=== PATIENT | female | born 1995 | race Caucasian/White ===

== ENCOUNTER 2021-03-01 16:05 | Observation (INO) | payer OTHER, SELFPAY ==
--- NOTE | 2021-03-01 16:04 | OBADM ---
This patient, Lucy Odonnell, admitted to the OB room [facility] Post [facility] for observation. Patient/family oriented to hospital policies and general routines including ID bracelet, bed and alarms, visiting hours, pain management, procedures, bathroom and other care routines, personal items, smoking policy, room service/diet, and visiting hours. Patient/Family are encouraged to report perceived risks to care and to ask questions if they do not understand what they are told or what they should do.
[2021-03-01 17:02] VITALS: BP 117/75; PULSE 86
[2021-03-01 17:20] VITALS: BMI 45.3
[2021-03-01 18:56] LABS: Fetal Fibronectin Negative
--- NOTE | 2021-03-02 12:32 | PM.OBTRLD ---
OB - Triage/Final Diagnosis Visit Information Comments/Additional reasons for admission: I have assessed the risk for this patient, Lucy Odonnell, and determined that she would benefit from observation care. Evaluation Laboratory results: Laboratory Tests 03/01/21 18:22 Fibronectin Negative Vital signs: Vital Signs - 24 hr 03/01/21 17:02 Pulse Rate 86 Blood Pressure 117/75 Final Diagnosis (1) False labor: Code(s): O47.9 - False labor, unspecified Status: Acute
== END 2021-03-01 19:55 | disposition home or self-care (01) ==
LOC: ANHOBOP 16:14 → ANHOBPP 16:14 → ANHOBOP 16:24 → ANHOBPP 16:24
PROVIDERS: Admitting Provider Obstetrics & Gynecology; Visit Provider Obstetrics & Gynecology
DX: O47.03 False labor before 37 completed weeks of gestation, third trimester (principal); Z3A.32 32 weeks gestation of pregnancy
CPT/HCPCS: 82731; 84112; G0378; G0379

== ENCOUNTER 2021-03-20 15:40 | Observation (INO) | payer OTHER, SELFPAY ==
[2021-03-20 16:01] VITALS: BP 115/77; PULSE 111
[2021-03-20 17:28] LABS: Add Urine Microscopic? YES; Appearance Urine Cloudy (Clear); Bacteria Urine Trace /hpf; Bilirubin Urine Negative (Negative); Blood Urine 2+ (Negative); Color Urine Yellow (Yellow); Glucose Urine UA Negative (Negative); Ketones Urine 1+ mg/dL (Negative); Leukocyte Esterase Ur Negative LEU/UL (NEGATIVE); Mucus Urine Rare /lpf; Nitrate Urine Negative (Negative); Protein Urine Negative (Negative); Specific Grav Ur 1.019 (1.001-1.035); Squamous Epithelial Cell Urine Moderate /hpf (Few); Urobilinogen Urine Negative mg/dL (<2.0); WBC Urine 0-3 /hpf (0-3)
[2021-03-20] MEDS: LACTATED RINGERS 1,000 ML 999 ML IV CONT (17:58)
[2021-03-20 19:15] LABS: Glucose Point of Care 73 mg/dl (65-105)
[2021-03-20 19:17] VITALS: BMI 45.3
[2021-03-20 19:28] VITALS: BP 117/69; PULSE 87
--- NOTE | 2021-03-22 09:46 | P.PNOB_ITS ---
OB - Triage/Final Diagnosis Visit Information Comments/Additional reasons for admission: I have assessed the risk for this patient, Lucy Odonnell, and determined that she would benefit from observation care. Evaluation Laboratory results: Laboratory Tests 03/20/21 03/20/21 17:18 19:11 POC Capillary Glucose 73 Urine Color Yellow Urine Appearance Cloudy H Urine pH 6.0 Ur Specific [place] 1.019 Urine Protein Negative Urine Glucose (UA) Negative Urine Ketones 1+ H Ur Blood (Man) 2+ H Urine Nitrate Negative Urine Bilirubin Negative Urine Urobilinogen Negative Ur Leukocyte Esterase Negative Urine RBC 11-20 H Urine WBC 0-3 Ur Squamous Epith Cells Moderate H Urine Bacteria Trace Urine Mucus Rare Final Diagnosis (1) False labor: Code(s): O47.9 - False labor, unspecified Status: Acute
== END 2021-03-20 22:26 | disposition home or self-care (01) ==
PROVIDERS: Admitting Provider Obstetrics & Gynecology; Visit Provider Obstetrics & Gynecology
DX: O47.03 False labor before 37 completed weeks of gestation, third trimester (principal); Z3A.35 35 weeks gestation of pregnancy
CPT/HCPCS: 81001; 82948; 87077; 87086; 87088; G0378; G0379; J7120

== ENCOUNTER 2021-03-30 15:45 | Outpatient (RCR) | payer OTHER, SELFPAY ==
[2021-03-09 15:50] VITALS: BP 112/75; PULSE 94
[2021-03-13 17:06] VITALS: BP 110/64; PULSE 103
[2021-03-16 18:08] VITALS: BP 105/60; PULSE 84
--- NOTE | 2021-03-16 18:22 | PC.NURSE ---
BPP 03/26. Pt given symptoms to return to L&D for- verbalizes understanding.
[2021-03-27 16:16] VITALS: BP 107/68; PULSE 105
--- NOTE | ~2021-03-30 | US_ITS ---
EXAMINATION: US OB BPP wo non-stress DATE: 03/23/2021 17:08 INDICATION: Gestational diabetes. Third trimester. TECHNIQUE: Real-time pelvic ultrasound was performed. COMPARISON: Ultrasound 03/16/2021 FINDINGS: There is a single living fetus in vertex presentation. The placenta is fundal. heart rate is 1 52 beats per minute (bpm). Biophysical profile performed by the technologist: breathing (30 sec sustained breathing in 30 minutes): 2 out of 2 movement (3 gross body movements in 30 minutes): 2 out of 2 tone (one episode of mjiyxoz-rzvsnzkqr-cyeqweq limb movement): 2 out of 2 Amniotic fluid pocket (2 cm): 2 out of 2 Total score: 8 out of 8 IMPRESSION: 1. Single living fetus in vertex presentation. 2. Biophysical profile 8 out of 8. Reviewed, dictated and finalized at location A.
--- NOTE | ~2021-03-30 | US_ITS ---
EXAMINATION: US OB follow up w BPP DATE: 03/30/2021 17:10 INDICATION: Large for gestational age. Third trimester. TECHNIQUE: Real-time pelvic ultrasound was performed. COMPARISON: Ultrasound 03/23/2021, 03/09/2021 FINDINGS: There is a single living fetus in vertex presentation. The placenta is anterior. heart rate is 134 beats per minute (bpm). The amniotic fluid index is 8.2 cm, which is normal. The following biometric data were obtained: Biparietal diameter (BPD): 9.3 cm; head circumference (HC): 34.9 cm; abdominal circumference (AC): 35 .1 cm; femur length (FL): 7.2 cm. These measurements are concordant. Estimated weight is 3536 g +/- 530 g, which correlates with 93rd percentile when 04/22/21 is used as estimated date of delivery. As single measurements, these parameters are each equal to the following estimated gestational ages: BPD: 37 weeks 6 days. HC: 40 weeks 4 days. AC: 39 weeks 0 days. FL: 36 weeks 6 days. estimated gestational age based solely on measurements from this exam is 38 weeks 4 days +/- 2 weeks 5 days. Biophysical profile performed by the technologist: breathing (30 sec sustained breathing in 30 minutes): 2 out of 2 movement (3 gross body movements in 30 minutes): 2 out of 2 tone (one episode of vwjvoup-tvpwtxnij-prlexca limb movement): 2 out of 2 Amniotic fluid pocket (2 cm): 2 out of 2 Total score: 8 out of 8 IMPRESSION: 1. Single living fetus in vertex presentation. 2. Large for gestational age. Estimated weight is 3536 g +/- 530 g, which correlates with 93rd percentile when 04/22/21 is used as estimated date of delivery. 3. Biophysical profile 8 out of 8. Reviewed, dictated and finalized at location A. IMPRESSION: 1. Single living fetus in vertex presentation. 2. Large for gestational age. Estimated weight is 3536 g +/- 530 g, which correlates with 93rd percentile when 04/22/21 is used as estimated date of jorje welch. 3. Biophysical profile 8 out of 8.
--- NOTE | ~2021-03-30 | US_ITS ---
EXAMINATION: US OB BPP wo non-stress DATE: 03/16/2021 18:12 INDICATION: Gestational diabetes during third trimester TECHNIQUE: Real-time pelvic ultrasound was performed. The interpreting radiologist was not present fo r the study. COMPARISON: 03/09/2021 FINDINGS: There is a single living fetus in vertex presentation. The placenta is anterior. heart rate is 131 beats per minute (bpm). Biophysical profile performed by the technologist: breathing (30 sec sustained breathing in 30 minutes): 2 out of 2 movement (3 gross body movements in 30 minutes): 2 out of 2 tone (one episode of idzezle-futkjsgip-fwnlogm limb movement): 2 out of 2 Amniotic fluid pocket (2 cm): 2 out of 2 Total score: 8 out of 8 IMPRESSION: 1. Single living fetus in vertex presentation. 2. Biophysical profile 8 out of 8. Reviewed, dictated and finalized at location A.
--- NOTE | ~2021-03-30 | US_ITS ---
EXAMINATION: US OB follow up w BPP DATE: 03/09/2021 15:40 INDICATION: Gestational diabetes during third trimester TECHNIQUE: Real-time pelvic ultrasound was performed. The interpreting radiologist was not present fo r the study. COMPARISON: None. FINDINGS: There is a single living fetus in vertex presentation. The placenta is anterior. heart rate is 165 beats per minute (bpm). Biophysical profile performed by the technologist: breathing (30 sec sustained breathing in 30 minutes): 2 out of 2 movement (3 gross body movements in 30 minutes): 2 out of 2 tone (one episode of favnndf-rryzpunqn-xiehegw limb movement): 2 out of 2 Amniotic fluid pocket (2 cm): 2 out of 2 Total score: 8 out of 8 The following biometric data were obtained: Biparietal diameter (BPD): 8.72 cm; head circumference (HC): 11.8 cm; abdominal circumference (AC): 3 2.9 cm; femur length (FL): 6.3 cm. The femoral length to abdominal circumference ratio is greater than two standard deviations below the mean. These measurements are otherwise concordant. Estimated weight is 2694 g +/- 404 g, which correlates with the 90th percentile when 04/22/2021 i s used as estimated date of delivery. As single measurements, these parameters are each equal to the following estimated gestational ages w ith ranges of +/- 2 standard deviations: BPD: 35 weeks 3 days +/- 3 weeks 1 days. HC: 35 weeks 6 days +/- 3 weeks 0 days. AC: 36 weeks 6 days +/- 3 weeks 0 days. FL: 32 weeks 3 days +/- 3 weeks 0 days. estimated gestational age based solely on measurements from this exam is 35 weeks 1 days +/- 2 weeks 3 days. IMPRESSION: 1. Single living fetus in vertex presentation. 2. Biophysical profile 8 out of 8. 3. Estimated weight is 2694 g +/- 404 g, which correlates with the 90th percentile when is used as estimated date of delivery. 4. Discordant femoral length to abdominal circumference ratio Reviewed, dictated and finalized at location B. IMPRESSION: 1. Single living fetus in vertex presentation. 2. Biophysical profile 8 out of 8. 3. Estimated weight is 2694 g +/- 404 g, which correlates with the 90th p ercentile when 04/22/2021 is used as estimated date of delivery. 4. Discordant femoral length to abdominal circumference ratio
[2021-03-30 16:50] VITALS: BP 113/65; PULSE 81
== END 2021-05-03 10:03 | disposition home or self-care (01) ==
LOC: ANHOBOP 15:45
PROVIDERS: Visit Provider Obstetrics & Gynecology
DX: O24.419 Gestational diabetes mellitus in pregnancy, unspecified control (principal); Z3A.33 33 weeks gestation of pregnancy; Z3A.34 34 weeks gestation of pregnancy; Z3A.35 35 weeks gestation of pregnancy; Z3A.36 36 weeks gestation of pregnancy
CPT/HCPCS: 59025; 76816; 76819

== ENCOUNTER 2021-04-01 06:06 | Inpatient (IN) | payer OTHER, SELFPAY ==
[2021-04-01] VITALS (53 sets, daily range): BP systolic 84–142; BP diastolic 40–93; PULSE 70–131; RESP 18–20; TEMP 36.1–37.1; O2SAT 95–100; BMI 46.5
--- NOTE | 2021-04-01 06:06 | LDADM ---
This patient, Lucy Odonnell, was admitted to Labor/Delivery/Recovery 104 on 04/01/21 at 06:06. Plans for labor, pain management and were discussed with patient. Patient/family oriented to hospital policies and general routines including ID bracelet, bed and alarms, visiting hours, pain management, procedures, bathroom and other care routines, personal items, smoking policy, room service/diet and guest tray routines, infant security routines, and visiting hours. Patient/Family are encouraged to report perceived risks to care and to ask questions if they do not understand what they are told or what they should do. See OBIX for further documentation.
--- OUTSIDE RECORDS SUMMARY | 2021-04-01 06:13 | XMS_ITS | Encounter Summary ---
:1995 Author Reason for Visit return OB visit Assessment and Plan 1. Routine care 2. Gestational diabetes mellitus ? US, obstetric, 3rd trimest er ? Lantus Solostar U-100 Insu onel 100 unit/mL (3 mL) subcutaneous pen Discussion Note: None recorded.Patient educational handouts: No information available. Plan of Care Reminders Provider Appointments None ? ? recorded. Lab None ? ? recorded. Referral None ? ? recorded. Procedures None ? ? recorded. Surgeries None ? ? recorded. Imaging US, [facility], 3Rd 03/08/2021 [facility] (Radiol ogy) Trimester Medications Name Start Date ? ? BD Ultra-Fine Short Pen Needle 31 gauge x 5/16 ? USE 1 NEEDLE AT BEDTIME DIRECTED Boostrix Tdap 2.5 Lf unit-8 mcg-5 Lf/0.5 mL intramuscu lar syringe ? TO BE ADMINISTERED BY PHARMACIST FOR IMMUNIZATION Lantus Solostar U-100 Insulin 100 unit/mL (3 mL) subcu taneous pen ? INJECT 10 UNITS EVERY DAY BY SUBCUTANEOUS ROUTE AT BE DTIME. PNV-DHA 27 mg iron-1 mg-300 mg capsule ? TAKE 1 CAPSULE BY MOUTH EVERY DAY Medications Administered None recorded. Vitals Weight Blood Pressure 244.4 lbs 118/84 mm[Hg] Results Lab Results
--- OUTSIDE RECORDS SUMMARY | 2021-04-01 06:13 | XMS_ITS | Encounter Summary ---
:1995 Author Reason for Visit return OB visit Assessment and Plan 1. Routine care ? HIV 1+2 Ab + HIV1 p24 Ag, quantitative immunoassay, serum ? glucose tolerance test, 1- hour ? hemoglobin + hematocrit, b lood Discussion Note: None recorded.Patient educational handouts: No information available. Plan of Care Reminders Provider Appointments None recorded. ? ? Lab HIV 1+2 Ab + [facility] orp HIV1 P24 Ag, Quantitative 02/01/2021 Immunoassay, Serum ? Glucose [facility] Tolerance Test, 1-Hour 02/01/2021 ? Hemoglobin + [facility] Hematocrit, Blood 02/01/2021 Referral None recorded. ? ? Procedures None recorded. ? ? Surgeries None recorded. ? ? Imaging None recorded. ? ? Medications Name Start Date ? ? BD Ultra-Fine Short Pen Needle 31 gauge x 01/01 ? USE 1 NEEDLE AT BEDTIME DIRECTED Boostrix Tdap 2.5 Lf unit-8 mcg-5 Lf/0.5 mL intramuscu lar syringe ? TO BE ADMINISTERED BY PHARMACIST FOR IMMUNIZATION Lant Solostar U-100 Insulin 100 unit/mL (3 mL) subcu taneous pen ? INJECT 10 UNITS EVERY DAY BY SUBCUTANEOUS ROUTE AT BE DTIME. PNV-DHA 27
--- OUTSIDE RECORDS SUMMARY | 2021-04-01 06:13 | XMS_ITS | Encounter Summary ---
:1995 Author Reason for Visit return OB visit Assessment and Plan 1. Gestational diabetes mellitus Discussion Note: None recorded.Patient educational handouts: No information available. Plan of Care Reminders Provider Appointments None ? ? recorded. Lab None ? ? recorded. Referral None ? ? recorded. Procedures None ? ? recorded. Surgeries None ? ? recorded. Imaging None ? ? recorded. Medications Name Start Date ? ? BD [...] Administered None recorded. Vitals Weight Blood Pressure 245 lbs 122/84 mm[Hg] Results Lab Results None recorded. Allergies Code Code System Name Reaction Severity Onset 5489 RxNorm Hydrocodone ? ? ? 8393112 RxNorm Latex Nausea ? Vomiting ? ? Problems
--- OUTSIDE RECORDS SUMMARY | 2021-04-01 06:13 | XMS_ITS | Encounter Summary ---
:1995 Author Reason for Visit return OB visit Assessment and Plan 1. Routine care Discussion Note: None recorded.Patient educational handouts: No [...] EVERY DAY Medications Administered None recorded. Vitals Height Weight Blood Pressure 5 ft 1 in 242 lbs 124/76 mm[Hg] Results Lab Results None recorded. Allergies Code Code System Name Reaction Severity Onset 2704 RxNorm Hydrocodone ? ? ? 5527700 RxNorm Latex Nausea ? Vomiting ? ? Problems
--- OUTSIDE RECORDS SUMMARY | 2021-04-01 06:13 | XMS_ITS | Encounter Summary ---
[...] Weight Blood Pressure 5 ft 1 in 246 lbs 122/86 mm[Hg] Results Lab Results None recorded. Allergies Code Code System Name Reaction Severity Onset 5495 RxNorm Hydrocodone ? ? ? 8824448 RxNorm Latex Nausea ? Vomiting ? ? Problems
--- OUTSIDE RECORDS SUMMARY | 2021-04-01 06:13 | XMS_ITS | Encounter Summary ---
:1995 Author Reason for Visit return OB visit Assessment and Plan 1. Gestational diabetes mellitus ? US, obstetric, 2nd or 3rd trimester - growth Discussion Note: None recorded.Patient educational handouts: No information available. Plan of Care Reminders Provider Appointments None ? ? recorded. Lab None ? ? recorded. Referral None ? ? recorded. Procedures None ? ? recorded. Surgeries None ? ? recorded. Imaging US, [facility], 2Nd or 3Rd [facility] ( [facility] Trimester Medications Name Start Date ? ? [...] Administered None recorded. Vitals Weight Blood Pressure 246 lbs 120/84 mm[Hg] Results Lab Results None recorded. Allergies Code Code System Name Reaction Severity Onset 2642 RxNorm
--- OUTSIDE RECORDS SUMMARY | 2021-04-01 06:13 | XMS_ITS ---
:1995 Author Care Team Providers Name Role Phone JINA ROONEY PA-C Primary Care Provider [phone] Allergies Code Code System Name Reaction Severity Status Onset NKDA ? Medications Name Status Start Date Stop Date ? ? Accu-Chek Evelin Completed ? 02/21/2018 Accu-Chek SmartView Test Strips Completed ? 02/21/2018 Accu-Chek Softclix Lancets Completed ? 02/21 Aczone 5 % topical gel Unknown ? Not avail able amitriptyline 10 mg tablet Completed ? 06/06 amoxicillin 250 mg capsule Completed ? 11/21 TAKE 1 CAPSULE BY MOUTH THREE TIMES A DAY amoxicillin 875 mg tablet Unknown ? Not av ailable amoxicillin 875 mg-potassium clavulanate 125 mg tablet Completed ? 11/19/2019 TAKE 1 TABLET BY MOUTH TWICE A DAY FOR 10 DAYS azithromycin 250 mg tablet Completed ? 09/23 TAKE 2 TABLETS BY MOUTH TODAY, THEN TAKE 1 TABLET DAILY FOR 4 D CLARISSA Burger (28) 0.4 mg-35 mcg tablet Completed ? 09/14/2013 TAKE 1 TABLET BY ORAL ROUTE ONCE DAILY BenzePrO 5.3 % topical foam Unknown ? Not available Boostrix Tdap 2.5 Lf unit-8 mcg-5 Active ? Not available Lf/0.5 mL intramuscular syringe clomiphene citrate 50 mg tablet Completed ? 07/01/2017 TAKE 1 TABLET EVERY DAY FOR 5 DAYS DIRECTED codeine 10 mg-guaifenesin 100 mg/5 mL oral liquid Completed ? 06/06/2020 TAKE 5-10 ML BY MOUTH EVERY 4 HOURS NEEDED FOR COUGH cyclobenzaprine 5 mg tablet Completed ? 09/20 Diclegis 10 mg-10 mg tablet,delayed Active ? Not available release
--- OUTSIDE RECORDS SUMMARY | 2021-04-01 06:13 | XMS_ITS ---
:1995 Author Care Team Providers Name Role Phone Silvino Primary Care Provider Unavailable Allergies Code Code System Name Reaction Severity Status Onset 5489 RxNorm Hydrocodone ? ? Active ? [id number] RxNorm Latex Nausea ? Active ? Vomiting ? Active ? Medications Name Status Start Date Stop Date ? ? Accu-Chek Evelin Completed ? 02/21/2018 Accu-Chek SmartView Test Strips Completed ? 02/21/2018 Accu-Chek Softclix Lancets Completed ? 02/21 Aczone 5 % topical gel Unknown ? Not avail able amitriptyline 10 mg tablet Active ? Not a vailable TAKE 1 TABLET BY MOUTH EVERY DAY AT NIGHT amoxicillin 250 mg capsule Completed ? 11/21 TAKE 1 CAPSULE BY MOUTH THREE TIMES A DAY amoxicillin 875 mg tablet Unknown ? Not av ailable amoxicillin 875 mg-potassium clavulanate 125 mg tablet Completed ? 11/19/2019 TAKE 1 TABLET BY MOUTH TWICE A DAY FOR 10 DAYS ampicillin 500 mg capsule Completed ? 2020 azithromycin 250 mg tablet Completed ? 09/23 TAKE 2 TABLETS BY MOUTH TODAY, THEN TAKE 1 TABLET DAILY FOR 4 D CLARISSA Burger (28) 0.4 mg-35 mcg tablet Completed ? 09/14/2013 TAKE 1 TABLET BY ORAL ROUTE ONCE DAILY BD Ultra-Fine Short Pen Needle 31 gauge x 16 Active ? Not available USE 1 NEEDLE AT BEDTIME DIRECTED BenzePrO 5.3 % topical foam Unknown ? Not available Boostrix Tdap 2.5 Lf unit-8 mcg-5 Active ? Not available Lf/0.5 mL intramuscular syringe clomiphene citrate 50 mg tablet Completed
[2021-04-01 06:46] LABS: Glucose Point of Care 147 mg/dl (65-105)
[2021-04-01] MEDS: AMPICILLIN 2 GM/NS 100 ML 2 GM/100 ML BAG IVPB (06:48)
[2021-04-01] MEDS: LACTATED RINGERS 1,000 ML 125 ML IV CONT ×2 (06:49→11:45)
[2021-04-01 06:56] LABS: Basophils Absolute Auto 0.1 K/mm3 (0.0-0.1); Basophils Percent Auto 0.5 % (0.2-1.2); Eosinophils Absolute Auto 0.2 K/mm3 (0-0.3); Eosinophils Percent Auto 1.7 % (0-4.4); Hemoglobin 11.8 g/dL (12.0-15.0); Immature Granulocyte Percent A 0.9 % (0-0.5); Lymphocytes Absolute Auto 2.63 K/mm3 (0.9-3.2); Lymphocytes Percent Auto 23.3 % (18.3-44.2); Mean Corpuscular HGB Conc 32.8 g/dl (32-36); Mean Corpuscular Hemoglobin 27.9 pg (26-34); Mean Corpuscular Volume 85.1 fl (80-100); Monocytes Absolute Auto 0.8 K/mm3 (0.1-0.6); Monocytes Percent Auto 7.2 % (2.6-8.5); Neutrophils Absolute Auto 7.5 K/mm3 (1.3-6.7); Neutrophils Percent Auto 66.4 % (45.5-73.1); Platelet Count Result 219 k/mm3 (150-375); Red Blood Count 4.23 M/mm3 (4.2-5.4); White Blood Count 11.3 K/mm3 (4.5-10.0)
--- NOTE | 2021-04-01 07:46 | WPDANESEPP ---
Anes - Eval Pre Procedure Procedure: labor epidural Date/Time: 04/01/21 07:46 Preop Diagnosis: labor pain Pre Op Diagnosis: IOL Patient Data Age: 25 Gender: F Height: 1.55 m Weight: 111.8 kg Last Vital Signs Temp 36.5 C 04/01/21 06:53 Pulse 75 04/01/21 06:53 Resp 18 04/01/21 06:53 BP 102/48 L 04/01/21 06:53 Allergies Allergy/AdvReac Type Severity Reaction Status Date / Time hydrocodone Allergy Intermediate SEVERE Verified 01/10/18 14:45 NAUSEA AND VOMITING latex Allergy Mild HIVES Verified 01/10/18 14:45 Home Medications Medication Instructions Recorded Confirmed Type insulin glargine [Lantus Solostar 18 unit SUBCUT HS 03/20/21 04/01/21 History U-100 Insulin] [id number] fumarate-FA 1 tablet PO HS 04/01/21 04/01/21 History [] Laboratory Tests 04/01/21 04/01/21 04/01/21 06:43 06:43 06:43 WBC RBC Hgb Hct MCV MCH MCHC RDW Plt Count MPV Immature Gran % (Auto) Neut % (Auto) Lymph % (Auto) [place] % (Auto) Eos % (Auto) Baso % (Auto) Lymph # (Auto) [place] # (Auto) Eos # (Auto) Baso # (Auto) Abs Immat Gran (auto) Absolute Neuts (auto) Absolute Nucleated RBC Nucleated RBC % POC Capillary Glucose 147 mg/dl H mg/dl (65-105) RPR Pending Blood Type O Positive Antibody Screen Negative 04/01/21 06:46 WBC 11.3 K/mm3 H K/mm3 (4.5-10.0) RBC 4.23 M/mm3 M/mm3 (4.2-5.4) Hgb 11.8 g/dL L g/dL (12.0-15.0) Hct 36.0 % L % (37.0-47.0) MCV 85.1 fl fl (80-100) MCH 27.9 pg pg (26-34) MCHC 32.8 g/dl g/dl (32-36) RDW 15.0 % H % (11.5-14.5) Plt Count 219 k/mm3 k/mm3 (150-375) MPV 11.0 fl H fl (7.4-10.4) Immature Gran % (Auto) 0.9 % H % (0-0.5) Neut % (Auto) 66.4 % % (45.5-73.1) Lymph % (Auto) 23.3 % % (18.3-44.2) [place] % (Auto) 7.2 % % (2.6-8.5) Eos % (Auto) 1.7 % % (0-4.4) Baso % (Auto) 0.5 % % (0.2-1.2) Lymph # (Auto) 2.63 K/mm3 K/mm3 (0.9-3.2) [place] # (Auto) 0.8 K/mm3 H K/mm3 (0.1-0.6) Eos # (Auto) 0.2 K/mm3 K/mm3 (0-0.3) Baso # (Auto) 0.1 K/mm3 K/mm3 (0.0-0.1) Abs Immat Gran (auto) 0.10 K/mm3 H K/mm3 (0.00-0.031) Absolute Neuts (auto) 7.5 K/mm3 H K/mm3 (1.3-6.7) Absolute Nucleated RBC 0.0 K/mm3 K/mm3 (0.0-0.012) Nucleated RBC % 0.0 % % (0.0-0.2) POC Capillary Glucose RPR Blood Type Antibody Screen Patient hx anesthesia problems: none Family hx anesthesia problems: none [facility] Family History Family History Grandparent Diabetes mellitus Social History Social History Smoking status: Never smoker Substance use: never Spiritual care concerns: No Exam Day of Procedure 04/01/21 07:46
--- NOTE | 2021-04-01 08:09 | PC.NURSE ---
Awaiting pharmacy to verify pitocin order.
--- NOTE | 2021-04-01 08:29 | PC.NURSE ---
Message left with pharmacy that Pit orders need verified.
[2021-04-01] MEDS: OXYTOCIN 30 UNITS/NS 500 ML 30 UNITS/500 ML BAG IV CONT (08:41)
[2021-04-01 09:59] LABS: Glucose Point of Care 73 mg/dl (65-105)
[2021-04-01] MEDS: AMPICILLIN 1 GM/NS 50 ML 1 GM/50 ML BAG IVPB ×2 (10:36→14:30)
--- NOTE | 2021-04-01 11:16 | PM.IMHP ---
H&P: HPI History of Present Illness Date/Time: 04/01/21 11:06 Lucy is a 25yo @ 37.0wks who presented to L&D for induction of labor. She has advanced cervical dilation in the setting of GBS as well as uncontrolled A2GDM with suspected macrosomia. She has undergone routine testing. She denies any LOF, VB. He's moving good. She has been dinesh. She has already been started on pitocin augmentation and received her first dose of GBS ppx. Her is complicated by: - Advanced cervical dilation, 5cm - GBS positive - A2GDM, uncontrolled on insulin - Suspected macrosomia w/ EFW @ 95%ile - Obesity, BMI 40 - CMV non-immune Chief Complaint: induction of labor Review of Systems Review of Systems: All systems reviewed & are unremarkable except as noted in HPI and below (HPI) [facility] Family History Family History Grandparent Diabetes mellitus Social History Social History Smoking status: Never smoker Substance use: never Spiritual care concerns: No Meds Home Medications and Allergies Home Medications Medication Instructions Recorded Confirmed Type insulin glargine [Lantus Solostar 18 unit SUBCUT HS 03/20/21 04/01/21 History U-100 Insulin] [id number] fumarate-FA 1 tablet PO HS 04/01/21 04/01/21 History [] Allergies Allergy/AdvReac Type Severity Reaction Status Date / Time hydrocodone Allergy Intermediate SEVERE Verified 01/10/18 14:45 NAUSEA AND VOMITING latex Allergy Mild HIVES Verified 01/10/18 14:45 Vital Signs Vital Signs - 24 hr 04/01/21 06:53 04/01/21 08:44 04/01/21 09:01 Temperature 36.5 C Pulse Rate 75 80 83 Respiratory Rate 18 Blood Pressure 102/48 L 107/66 97/58 L 04/01/21 09:31 04/01/21 10:01 04/01/21 10:37 Temperature Pulse Rate 94 77 74 Respiratory Rate Blood Pressure 133/82 131/66 112/66 04/01/21 10:38 04/01/21 11:01 Temperature 36.6 C Pulse Rate 73 Respiratory Rate 18 Blood Pressure 130/84 Exam Const: General: cooperative, comfortable and no acute distress Nutritional Appearance: obese Resp: Effort & Inspection: normal respiratory effort and able to speak in complete sentences Cardio: Rate: regular rate GI: Inspection: non-distended GI Palp: No abdominal tenderness and Yes Soft to palpation : Other: FHT's: 130's/ mod kaycee/ + accels/ no decels - cat 1 TOCO: ctx's q3-4min Cervix: 5/60/-3 Membranes: AROM, clear 1100 Presentation: cephalic H&P: Results Labs Labs: Short CBC 04/01/21 Range/Units 06:46 WBC 11.3 H (4.5-10.0) K/mm3 Hgb 11.8 L (12.0-15.0) g/dL Hct 36.0 L (37.0-47.0) % Plt Count 219 (150-375) k/mm3 Assessment and Plan Assessment and plan (1) Gestational diabetes mellitus: Qualifiers: Gestational diabetes mellitus control: insulin-controlled Trimester: third trimester Qualified Code(s): O24.414 - Gestational diabetes mellitus in , insulin controlled Code(s): O24.419 - Gestational diabetes mellitus in , unspecified control Status: Acute (2) Obesity affecting : Qualifiers: Trimester: third trimester Qualified Code(s): O99.213 - Obesity complicating , third trimester Code(s): O99.210 - Obesity complicating , unspecified trimester Status: Acute (3) Encounter for induction of labor: Code(s): Z34.90 - Encounter for supervision of normal , unspecified, unspecified trimester Status: Acute Additional Plan - Admitted to L&D for IOL; shoulder dystocia precautiosn discussed - Continue pitocin per protocol - Continuous monitoring - GBS ppx w/ ampicillin - BS checks q4h in latent phase; q2h in active phase - Anesthesia consult PRN pain
--- NOTE | 2021-04-01 11:16 | WPDHPUPDATE1 ---
History and Physical Update Update Date/Time: 04/01/21 11:16 History and Physical has been reviewed, including an updated exam of the patient. There are NO changes in the patient's condition. Risks, benefits, and alternatives have been discussed and questions answered. Patient agrees to proceed with procedure.
[2021-04-01 13:42] LABS: Glucose Point of Care 98 mg/dl (65-105)
[2021-04-01 15:32] LABS: Glucose Point of Care 89 mg/dl (65-105)
--- NOTE | 2021-04-01 15:54 | PM.OBPRVD ---
OB - Delivery Note Procedure Delivery date: 04/01/21 events: Gestational Diabetes (on insulin) and Labor Augmentation Delivery augmentation: rupture of membranes and pitocin Delivery monitor: external FHT and external uterine Route of delivery: Laceration Description: Vaginal - 1st Degree Delivery repair: vicryl Specimen: Yes Quantitative Blood Loss (ml): 102 Anesthesia type: Epidural Disposition: floor Baby Date of : 04/01/21 Time of : 15:34 Weeks of gestation at delivery: 37 Infant gender: Male Weight (pounds): 8 Weight (ounces): 5 presentation: vertex position: Left Occiput Anterior Placenta delivery description: Expressed cord vessel description: 3 Vessels and Delayed Cord Clamping score one minute: 8 score five minutes: 9 Narrative: Lucy rapidly progressed to complete dilation with strong desire to push. She pushed for approximately 30 minutes with good maternal effort. She delivered the head over intact perineum. No nuchal cord was palpated. She easily delivered the shoulders and body. Baby was immediately placed skin to skin. The mouth and nose were bulb suction and he was stimulated with good cry. Delayed cord clamping was performed. The umbilical cord was then clamped and cut. A segment of the cord was collected for cord gases and the remaining cord blood was collected for typing. With Pitocin running and gentle downward traction on the cord, the placenta delivered without complications. Bimanual massage was performed and good uterine tone with minimal bleeding was noted. Patient was examined and a small vaginal laceration was noted. The laceration was repaired in the normal fashion using 2-0 Vicryl. Fundal massage was performed and good fundal tone was noted with minimal bleeding was noted. Sponge, lap, instrument, and needle counts were correct at the end of the procedure. Mom and baby were left bonding in the birthing suite in a stable condition.
[2021-04-01] MEDS: OXYTOCIN 30 UNITS/NS 500 ML 30 UNITS/500 ML BAG 125 UNITS (16:19)
[2021-04-01] MEDS: LORATADINE 10 MG TABLET PO (19:05)
[2021-04-02 00:15] VITALS: BP 121/66; PULSE 80; RESP 18; TEMP 36.6; O2SAT 99
[2021-04-02] MEDS: ACETAMINOPHEN 325 MG TABLET 650 MG PO (00:34)
[2021-04-02] MEDS: IBUPROFEN 600 MG TABLET PO ×2 (03:40→09:32)
[2021-04-02 04:00] VITALS: BP 109/59; PULSE 69; RESP 18; TEMP 36.8; O2SAT 99
[2021-04-02 05:32] LABS: Hematocrit 33.9 % (37.0-47.0); Hemoglobin 10.8 g/dL (12.0-15.0)
[2021-04-02] MEDS: DOCUSATE SODIUM 100 MG CAPSULE PO (09:31)
[2021-04-02] MEDS: MULTIVIT/MIN/PREN/FOL AC/IRON TABLET 1 TAB PO (09:31)
--- NOTE | 2021-04-02 11:19 | PM.OBPNVD ---
OB - PN: Subj Subjective Date/time seen: 04/02/21 11:01 PPD#1 Lucy reports doing well today. She reports her pain is controlled with PO meds. 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 She has voided, passed gas, and ambulated. She is breast/bottle feeding. She would like her son circumcised today. She would also like to go home this evening. She denies CP, SOB, fever, chills, CP, OVALLE, vision changes, N/v, palpitations or dizziness. OB - PN: Obj Data Labs CBC & Chem 7: 04/02/21 03:34 Labs: Laboratory Results - last 24 hr 04/01/21 04/01/21 04/02/21 13:38 15:27 03:34 Hgb 10.8 L Hct 33.9 L POC Capillary Glucose 98 89 OB - PN A/P Assessment and Plan (1) Status post normal vaginal delivery: Status: Acute Plan day: 1 Plan: routine care and discharge home Comments: - F/u in 4wks for PP visit; 2hr glucose tolerance test 6wks PP - ER return precautions: n/v/abd pain, fever, bleeding, HTN - Son circumcised w/o issue Time Spent With Patient Time: Total time spent is greater than 50% in coordination of care (as documented) at patient's floor/unit and/or counseling patient: Review of Systems Review of Systems: All systems reviewed & are unremarkable except as noted in HPI and below (HPI) Exam Const: General: cooperative, comfortable and no acute distress Nutritional Appearance: obese Resp: Effort & Inspection: normal respiratory effort Auscultation: clear to auscultation bilaterally Cardio: Rate: regular rate GI: Inspection: normal to inspection and non-distended GI Palp: No abdominal tenderness and Yes Soft to palpation Auscultation: normal bowel sounds : Other: fundus firm Skin: General skin exam: normal color Neuro: General: patient oriented x3 Extrem: General: normal to inspection Psych: Appearance: grossly normal Affect: normal affect Attitude: cooperative
[2021-04-02 12:42] VITALS: BP 110/64; PULSE 70; RESP 18; TEMP 36.6; O2SAT 98
[2021-04-03 08:36] LABS: Rapid Plasma Reagin Non-Reactive (NonReactive)
[2021-04-04 07:48] VITALS: BP 119/73; PULSE 77; RESP 20; TEMP 37; O2SAT 98
--- NOTE | 2021-04-07 15:51 | PM.OBDSVD ---
DS: Admitting Diagnosis Admitting Diagnosis Induction of labor; A2GDM, advanced cervical dilation, GBS positive DS: Discharge Diagnosis Discharge Diagnosis (1) Status post normal vaginal delivery: Status: Acute OB - DS: Summary OB Procedures : NST and Ultrasound OB Procedures Intrapartum: Spontaneous Vag Delivery OB Procedures: : None Peripartum Data Delivery Method: Natural Vaginal Laceration Description: Vaginal - 1st Degree complications: none 1: Gender: Male Disposition of : home Status at Discharge Functional status at discharge: independent ambulation Overall status at discharge: patient is back to baseline Time Spent with Patient Time attestation: Total time spent providing and/or coordinating discharge services: Exam Const: General: cooperative, comfortable and no acute distress Nutritional Appearance: obese Resp: Effort & Inspection: normal respiratory effort Auscultation: clear to auscultation bilaterally Cardio: Rate: regular rate GI: Inspection: normal to inspection and non-distended GI Palp: No abdominal tenderness and Yes Soft to palpation Auscultation: normal bowel sounds : Other: fundus firm Skin: General skin exam: normal color Neuro: General: patient oriented x3 Extrem: General: normal to inspection Psych: Appearance: grossly normal Affect: normal affect Attitude: cooperative DS: Data Data Completed and Pending Completed studies during hospitalization: Pending at discharge 04/01/21 15:39 Surgical [PTH] Routine Discharge Plan Discharge Attending physician on discharge: Nessa Dubois Discharging Clinician: Nessa Dubois Anticipated Discharge Date/Time: 04/02/21 17:00 Patient Disposition: Home, Self-Care Activity: may shower and pelvic rest Diet: as tolerated and regular Discharge Instructions: Education: Mom and Baby Guide Given to: Mother Follow-Up: Call your delivering provider's office for an appointment to be seen in: 4 Weeks Mom and baby should come to the [facility] for the follow-up appointment. Appointment Date/Time: Sunday, April 04, 2021 at 8:00 am What to expect at your follow-up visit: Blood Pressure Check Physical Assessment Call [phone] if you are unable to keep your appointment time. BREAST CARE: * Wear a snug supportive bra. * For engorgement discomfort: Breast Feeding: * Apply warm moist washcloths * Express milk as needed to relieve engorgement * Wear loose clothing * For sore nipples: * Identify correct latch-on * Apply warm moist washcloths before and after nursing * Air dry nipples after nursing * May apply Lansinoh cream to nipples EPISIOTOMY/PERINEAL CARE: * Until bleeding stops, use your renuka bottle after urinating * Change your pad frequently throughout the day * You may take sitz baths several times a day (fill your bathtub with warm water and soak for 20 minutes.) Do NOT bathe in the water * No tub baths until seen by your physician - You may shower ACTIVITY: * Rest as much as possible. * Do not exercise or lift anything heavier than your baby (such as laundry or other children.) * Avoid stairs or driving as much as possible. * Do not put anything into the vagina. No douching, tampons, or sexual activity until seen by physician. NOTIFY PHYSICIAN IF YOU HAVE ANY QUESTIONS OR IF ANY OF THE FOLLOWING SYMPTOMS OCCUR: * If your vaginal area becomes red, swollen, or more painful than what you have experienced in the hospital. * If your vaginal bleeding becomes foul smelling. * If your vaginal bleeding becomes more heavy than a period or if your bleeding changes from pink to bright red. However, you may pass an occasional walnut-sized clot once or twice for the first week . * If you experience a sharp, shooting pain in y
== END 2021-04-02 16:50 | disposition home or self-care (01) | DRG 807 ==
LOC: ANHLDR 06:10 → ANHOB2 18:17
PROVIDERS: Admitting Provider Obstetrics & Gynecology; Visit Provider Obstetrics & Gynecology
DX: O24.424 Gestational diabetes mellitus in childbirth, insulin controlled (principal); Z37.0 Single live birth; Z3A.37 37 weeks gestation of pregnancy; O99.214 Obesity complicating childbirth; E66.9 Obesity, unspecified; O99.824 Streptococcus B carrier state complicating childbirth; O36.63X0 Maternal care for excessive fetal growth, third trimester, not applicable or unspecified; O70.0 First degree perineal laceration during delivery; O36.8330 Maternal care for abnormalities of the fetal heart rate or rhythm, third trimester, not applicable or unspecified
CPT/HCPCS: 36415; 59025; 76816; 76819; 82948; 85014; 85018; 85025; 86592; 86850; 86900; 86901; 88307; A9270; J0290; J2590; J7120

== ENCOUNTER 2021-07-29 14:10 | Emergency (ER) | payer OTHER, MEDICAID, SELFPAY ==
[2021-07-29 14:22] VITALS: BP 130/74; PULSE 93; RESP 16; TEMP 37.2; O2SAT 98
--- NOTE | 2021-07-29 14:24 | ED.EAR ---
HPI - Ear Problem General Chief complaint: Ear Stated complaint: Ear Pain Time Seen by Provider: 07/29/21 14:24 Source: patient, RN notes reviewed and old records reviewed Mode of arrival: ambulatory Limitations: no limitations History of Present Illness HPI Narrative: 25-year-old female presents to the [facility] with complaints of ear pain. Related Data Home Medications Medication Instructions Recorded Confirmed sertraline 50 mg PO DAILY 07/29/21 07/29/21 Allergies Allergy/AdvReac Type Severity Reaction Status Date / Time hydrocodone Allergy Intermediate SEVERE Verified 07/29/21 14:21 NAUSEA AND VOMITING latex Allergy Mild HIVES Verified 07/29/21 14:21 [facility] Family History Family History Grandparent Diabetes mellitus Social History Social History Smoking status: Never smoker Substance use: never Spiritual care concerns: No Comments At the time of my signature, I reviewed and agree with the nursing past medical, surgical, social, and family history. There is no relevant family history pertinent to the patient complaint. Exam Const: General: healthy appearing, no acute distress and alert Nutritional Appearance: well nourished Orientation/consciousness: patient oriented x3 Limitations: no limitations HENMT: Head: normal to inspection Ears: external ears normal, EAC's normal and TM abnormal erythematous on the right, with loss of landmarks on the right and perforated with purulent discharge on the left Mouth: Yes lip normal Neck: Neck: normal visual inspection, no lymphadenopathy and no meningeal signs Chest: Chest palpation & inspection: normal inspection of the chest Resp: Effort & Inspection: normal respiratory effort and no use of accessory muscles Auscultation: clear to auscultation bilaterally, no crackles, no rales, no rhonchi and no wheezes Cardio: Rate: regular rate Rhythm: regular rhythm : General: Yes no CVA tenderness Back/Spine/Pelvis: Back: no CVA tenderness Skin: General skin exam: normal color Rashes: no rashes Wounds: no wounds Neuro: General: patient oriented x3, moves all extremities, no meningeal signs and no focal motor deficits Speech: normal speech Gait exam (Neuro): Normal gait present Extrem: General: normal to inspection and no pedal edema Psych: Appearance: grossly normal and well kempt Mental Status: mental status grossly normal Affect: normal affect Attitude: cooperative Thought content: Yes Normal thought content present Course Course Emergency Course: Discharge instructions reviewed with patient, as well as provided in writing per nursing staff. The instructions also include specific and strict return/GO TO THE ER as well as f/u information. All questions have been answered, and the patient deny any further questions with discharge and discharge plan. Vital Signs Vital signs: Vital Signs Temperature 98.9 F 07/29/21 14:22 Pulse Rate 93 07/29/21 14:22 Respiratory Rate 16 07/29/21 14:22 Blood Pressure 130/74 07/29/21 14:22 Pulse Oximetry 98 07/29/21 14:22 Temperature 98.9 F 07/29/21 14:22 Pulse Rate 93 07/29/21 14:22 Respiratory Rate 16 07/29/21 14:22 Blood Pressure 130/74 07/29/21 14:22 Pulse Oximetry 98 07/29/21 14:22 Reviewed Medical Decision Making Differential Diagnosis Differential Diagnosis: Otitis media, otitis externa, perforated eardrum, sinusitis Vital Signs Vital Signs: Vital Signs Temperature 98.9 F 07/29/21 14:22 Pulse Rate 93 07/29/21 14:22 Respiratory Rate 16 07/29/21 14:22 Blood Pressure 130/74 07/29/21 14:22 Pulse Oximetry 98 07/29/21 14:22 Temperature 98.9 F 07/29/21 14:22 Pulse Rate 93 07/29/21 14:22 Respiratory Rate 16 07/29/21 14:22 Blood Pressure 130/74 07/29/21 14:22 Pulse Oximetry 98 07/29/21 14:22 Critical Care Time Critical Care
== END 2021-07-29 14:40 | disposition home or self-care (01) ==
PROVIDERS: Emergency Provider Nurse Practitioner
DX: H66.011 Acute suppurative otitis media with spontaneous rupture of ear drum, right ear (principal); H66.92 Otitis media, unspecified, left ear; H60.501 Unspecified acute noninfective otitis externa, right ear
CPT/HCPCS: 99213; G0463

== ENCOUNTER 2022-05-11 17:23 | Emergency (ER) | payer OTHER, MEDICAID, SELFPAY ==
[2022-05-11 17:31] VITALS: BP 123/74; PULSE 73; RESP 18; TEMP 37.4; O2SAT 100
--- NOTE | 2022-05-11 17:41 | ED.SKABFB ---
HPI - Skin/Abscess/Foreign Bdy General Chief complaint: Skin/Abscess/Foreign Body Stated complaint: Rash All Over Body Time Seen by Provider: 05/11/22 17:41 Source: patient, RN notes reviewed and old records reviewed Mode of arrival: ambulatory Limitations: no limitations History of Present Illness HPI narrative: 26-year-old female who presents to [facility] care with complaints of a rash for 3-week interval which has not gone away. Patient recently visited the [facility] and thinks she came into contact with some type of poison plant. Patient reports eye was swollen and then went away, then had small area on hand that went away and now several areas on body of red itchy rash, on lower back arms, hands, and lower abdomen. Patient has taken Benadryl for the itching MD complaint: rash Onset (ago): week(s) (3) Treatments prior to arrival: Benadryl and other (steroid cream) Related Data Allergies Allergy/AdvReac Type Severity Reaction Status Date / Time hydrocodone Allergy Intermediate SEVERE Verified 11/20/21 10:56 NAUSEA AND VOMITING latex Allergy Mild HIVES Verified 11/20/21 10:56 Review of Systems Review of Systems: CONSTITUTIONAL: Denies fever, chills, or sweats. EYES: Denies visual changes, redness, or discharge. ENT: Denies rhinorrhea, congestion, sore throat, or otalgia. CARDIOVASCULAR: Denies chest pain, palpitations, or edema. RESPIRATORY: Denies cough or dyspnea. GASTROINTESTINAL: Denies abdominal pain, nausea, vomiting, or diarrhea. GENITOURINARY: Denies dysuria or hematuria. SKIN: Positive for spreading rash or itching. MUSCULOSKELETAL: Denies back pain, joint pain, or myalgia. NEUROLOGIC: Denies headache, numbness, or weakness. PSYCHIATRIC: Denies anxiety or depression. All systems reviewed & are unremarkable except as noted in HPI and below PMFSH Past Medical History Medical History (Updated 05/15/22 @ 09:01 by Magi Marino NP) Gestational diabetes mellitus History of frequent headaches Migraines Otorrhea of both ears Surgical History Surgical History H/O knee surgery (~08/19/11) Family History Family History Grandparent Diabetes mellitus Hypertension Unknown Breast cancer Carcinoma of colon Social History Social History Smoking status: Never smoker Substance use: never Spiritual care concerns: No Comments At time of signature agree with nursing documentation of past medical, surgical, social, and family history. There is n relevant family history pertinent to presenting complaint. Exam Narrative: GENERAL: Well-appearing, well-nourished, and in no acute distress. HEAD: Normocephalic, atraumatic. EYES: PERRLA and EOMI. ENT: Nares clear, no rhinorrhea or epistaxis. Mucous membranes moist.TM's normal with good light reflex NECK: Supple.no lymphadenopathy CHEST: Clear to auscultation. No respiratory distress.SAO2 100% on room air HEART: Regular rate and rhythm. No murmur heard. Normal peripheral pulses. ABDOMEN: Soft, nontender, nondistended, normal active bowel sounds. EXTREMITIES: Normal range of motion. No edema. SKIN: Warm, dry, positive for scattered red raised rash which is itchy noted on back, stomach arms and hand is grouped and few vesicles noted. NEURO: No focal deficits. Alert and oriented x3. Course Course Level of Care: Express Care Visit Vital Signs Vital signs: Vital Signs Temperature 37.4 C 05/11/22 17:31 Pulse Rate 73 05/11/22 17:31 Respiratory Rate 18 05/11/22 17:31 Blood Pressure 123/74 05/11/22 17:31 Pulse Oximetry 100 05/11/22 17:31 Oxygen Delivery Room Air 05/11/22 17:31 Temperature 37.4 C 05/11/22 17:31 Pulse Rate 73 05/11/22 17:31 Respiratory Rate 18 05/11/22 17:31 Blood Pressure 123/74 05/11/22 17:31 Pulse Oximetry 100 05/11/22 1
== END 2022-05-11 18:00 | disposition home or self-care (01) ==
PROVIDERS: Emergency Provider Registered Nurse
DX: L25.5 Unspecified contact dermatitis due to plants, except food (principal)
CPT/HCPCS: 99213; G0463

== ENCOUNTER 2024-06-18 09:52 | Outpatient (CLI) | payer OTHER, SELFPAY ==
--- NOTE | ~2024-06-18 | MR_ITS ---
EXAMINATION: MR knee RT wo con DATE: 06/18/2024 10:33 INDICATION: Right knee pain TECHNIQUE: Magnetic resonance imaging (MRI) of the right knee was performed without intravenous contr ast. Sequences included coronal PD-weighted FSE, coronal PD-weighted FS FSE, sagittal T2-weighted FS E, sagittal PD-weighted FS FSE and axial PD weighted fat saturated FSE. COMPARISON: 05/23/2009 FINDINGS: Medial compartment: Medial meniscus is normal. Articular cartilage is normal. Lateral compartment: Lateral meniscus is normal. Articular cartilage is normal. Patellofemoral compartment: Deep chondral ulceration with mild underlying subarticular edema-like signal change at the cephalad a spect of the trochlear groove and lateral side of the medial trochlea. Remaining cartilage the patell ofemoral compartment is normal. Ligaments and tendons: Anterior and posterior cruciate ligaments are normal. The medial collateral ligament and fibular renny ateral ligament complex are normal. The extensor mechanism is normal. The visualized medial and later al hamstring tendons as well as the iliotibial band are normal. Fluid: Physiologic amount of fluid in the joint space. No loose osteochondral bodies identified. Osseous/other: Small low signal intensity bone island at the posterior aspect of the lateral femoral condyle. No fra cture or pathologic marrow replacing process. IMPRESSION: 1. 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 2. Otherwise unremarkable right knee MRI Reviewed, dictated and finalized at location A. IMPRESSION: 1. 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 2. Otherwise unremarkable right knee MRI
== END 2024-06-18 09:53 | disposition home or self-care (01) ==
DX: M22.41 Chondromalacia patellae, right knee (principal); S83.241A Other tear of medial meniscus, current injury, right knee, initial encounter; X58.XXXA Exposure to other specified factors, initial encounter; M25.461 Effusion, right knee
CPT/HCPCS: 73721